=== PATIENT | female | born 1965 | race Caucasian/White ===

== ENCOUNTER 2016-09-02 09:50 | Emergency (ER) | payer MEDICAID ==
[~2016-09-02] VITALS: Ht 175.3 cm; Wt 77.1 kg
[2016-09-02 10:00] VITALS: BP_SYST 158
[2016-09-02] MEDS ORDERED: DIPHENHYDRAMINE INJ 50 MG/ML VIAL IM ONE (10:30)
[2016-09-02 12:10] VITALS: BP_SYST 129
== END 2016-09-02 12:10 | disposition home or self-care (01) ==
LOC: SED 09:50
DX: L53.9 Erythematous condition, unspecified (principal); T50.995A Adverse effect of other drugs, medicaments and biological substances, initial encounter; E78.00 Pure hypercholesterolemia, unspecified; Z88.6 Allergy status to analgesic agent; Y92.89 Other specified places as the place of occurrence of the external cause
CPT/HCPCS: 96372; 99283; J1200

== ENCOUNTER 2021-03-06 18:22 | Emergency (ER) | payer MEDICAID ==
[~2021-03-06] VITALS: Ht 165.1 cm; Wt 74.8 kg
[2021-03-06 18:23] VITALS: BP_SYST 153
--- NOTE | 2021-03-06 18:27 | NUR ---
AMBULATED TO BED 2
--- NOTE | 2021-03-06 18:38 | NUR ---
ER at bedside examining patient.
[2021-03-06] MEDS ORDERED: DIPHENHYDRAMINE HCL 25 MG CAPSULE PO ONE (18:45)
[2021-03-06] MEDS ORDERED: DEXAMETHASONE SOD PHOSPHATE 10 MG/ML VIAL IM ONE (18:45)
--- NOTE | 2021-03-06 18:47 | NUR ---
Pt. bib sister with concerns of allergic reaction, pt. has mild reddness to face but concerned symptoms will worsen, from past experience ussually starts with facial rash and can spread to welts over body, pt. does not know cause of allergy, denies pain
[2021-03-06 19:49] VITALS: BP_SYST 153
--- NOTE | 2021-03-06 19:50 | NUR ---
Patient given written and verbal discharge instructions and verbalizes understanding. ER MD discussed with patient the results and treatment provided. Patient in stable condition. ID arm band removed. Patient educated on pain management and to follow up with PMD. Pain Scale 0/10. Opportunity for questions provided and answered. Medication side effect fact sheet provided.
== END 2021-03-06 19:49 | disposition home or self-care (01) ==
LOC: SED 18:22
DX: T78.40XA Allergy, unspecified, initial encounter (principal); R22.0 Localized swelling, mass and lump, head; I10 Essential (primary) hypertension; E78.00 Pure hypercholesterolemia, unspecified; F32.9 Major depressive disorder, single episode, unspecified; Z88.8 Allergy status to other drugs, medicaments and biological substances; X58.XXXA Exposure to other specified factors, initial encounter
CPT/HCPCS: 96372; 99283; J1100; Q0163

== ENCOUNTER 2022-01-16 15:32 | Emergency (ER) | payer MEDICAID ==
[~2022-01-16] VITALS: Ht 170.2 cm; Wt 74.8 kg
[2022-01-16 16:03] VITALS: BP_SYST 123
[2022-01-16 17:19] LABS: BILIRUBIN,URINE 1+ (NEGATIVE); BLOOD, URINE 3+ (NEGATIVE); GLUCOSE,URINE NEGATIVE (NEGATIVE); KETONES,URINE TRACE (NEGATIVE); LEUKOCYTE ESTERASE ,URINE 3+ (NEGATIVE); NITRITE, URINE POSITIVE (NEGATIVE); PROTEIN URINE 3+ (NEGATIVE)
[2022-01-16 17:26] LABS: CLARITY/URINE SLIGHTLY CLOUDY (CLEAR); COLOR,URINE RED (YELLOW)
[2022-01-16 17:30] LABS: BACTERIA,URINE MODERATE /HPF (None Seen); RBC,URINE >100 /HPF (0-3); WBC,URINE 50-80 /HPF (0-3)
[2022-01-16 17:31] LABS: MUCUS,URINE None Seen /LPF (None Seen)
[2022-01-16 17:34] LABS: BASOPHILS # (AUTO) 0.1 K/uL (0.0-0.2); BASOPHILS % (AUTO) 0.5 % (0.0-2.0); EOSINOPHILS % (AUTO) 0.2 % (0.0-4.0); HEMATOCRIT 36.4 % (36-48); LYMPHOCYTES # (AUTO) 1.7 K/uL (1.0-5.5); LYMPHOCYTES % (AUTO) 14.2 % (20.5-51.5); MEAN CORPUSCULAR VOLUME 89 fL (79.0-98.0); MONOCYTES % (AUTO) 8.5 % (1.7-9.3); NEUTROPHILS % (AUTO) 76.6 % (40.0-70.0); PLATELET COUNT (AUTO) 268 K/uL (130-430); RED BLOOD CELL COUNT(AUTO) 4.11 MIL/uL (4.2-6.2); RED CELL DISTRIBUTION WIDTH 13.5 % (9.0-15.0); WHITE BLOOD COUNT (AUTO) 11.8 K/uL (4.8-10.8)
[2022-01-16 17:43] LABS: CALCIUM 9.2 mg/dL (8.4-11.0); CREATININE 0.99 mg/dL (0.55-1.30); POTASSIUM 3.9 mmol/L (3.5-5.1)
[2022-01-16 17:49] LABS: ALBUMIN 3.3 g/dL (3.4-4.8); TOTAL BILIRUBIN 0.5 mg/dL (0.0-1.0)
--- NOTE | 2022-01-16 18:09 | NUR ---
Patient to ER bed 6 to gown for evaluation. Side rails up. Report given to Mona BOLAÑOS.
--- NOTE | 2022-01-16 18:11 | NUR ---
PT CAME FROM HOME C/O FLANK PAIN RADIATING TO ABD X 2-3 DAYS WITH HEMATURIA. PT IS A&OX4, CALM AND COOPERATIVE. DENIES MEDICAL CONDITIONS BUT STATES HX OF KNEE SURGERY AND THYROID SX. WILL MONITOR AND PROVIDE CARE ORDERED.
--- NOTE | 2022-01-16 18:21 | NUR ---
RICARDO GUAMAN at bedside examining patient.
[2022-01-16] MEDS ORDERED: PIPERACILLIN/TAZO 3.375 GM in D5W 50 ML IV ONE (18:30)
[2022-01-16] MEDS ORDERED: ACETAMINOPHEN 325 MG TABLET PO ONE (18:30)
[2022-01-16] MEDS ORDERED: NS 1000 ML IV.SOLN IV ONE (18:30)
--- NOTE | 2022-01-16 18:30 | NUR ---
NS 1 L STARTED AND ENDED AT 1930 HRS
[2022-01-16 18:39] LABS: INR 0.9 (0.8-1.2); PROTHROMBIN TIME 9.6 SECS (9.5-12.5)
[2022-01-16] MEDS ORDERED: cefTRIAXone 1 GM VIAL ONE (19:44)
[2022-01-16] MEDS ORDERED: ONDANSETRON HCL 4 MG/2 ML VIAL IVP ONE (19:45)
[2022-01-16] MEDS ORDERED: MORPHINE 4 MG INJ. 4 MG/ML VIAL IVP ONE (19:45)
[2022-01-16] MEDS ORDERED: cefTRIAXone 1 GM in D5W 50 ML IV ONE (19:45)
[2022-01-16] MEDS ORDERED: HYDROcodone/ACETAMIN 7.5-325 MG TAB PO ONE (20:00)
[2022-01-16] MEDS ORDERED: cefTRIAXone 1 GM IVPB PREMIX 50 ML IV ONE (20:00)
--- NOTE | 2022-01-16 20:00 | NUR ---
pt c/o abdominal pains ,started a peripheral line G20 to left lower arm.started IVF bolus medicaed as ordered vitals done WNL
[2022-01-16 20:11] VITALS: BP_SYST 132
[2022-01-16] MEDS ORDERED: HYDR-3921 PO (20:24)
[2022-01-16] MEDS ORDERED: CEFI400C2 PO (20:24)
[2022-01-16] MEDS ORDERED: ONDA-8 TL (20:24)
--- NOTE | 2022-01-16 23:00 | NUR ---
PAIN RELIEVE AWAITS DC
--- NOTE | 2022-01-17 | NUR ---
VITALS WNL.PAIN RELIEVED .
--- NOTE | 2022-01-17 00:28 | NUR ---
Patient given written and verbal discharge instructions and verbalizes understanding. ER MD discussed with patient the results and treatment provided. Patient in stable condition. ID arm band removed. IV catheter removed intact and dressing applied, no active bleeding. Rx of given. Patient educated on pain management and to follow up with PMD. Pain Scale 0/10 Opportunity for questions provided and answered. Medication side effect fact sheet provided.
== END 2022-01-16 22:25 | disposition home or self-care (01) ==
LOC: SED 15:32
DX: N12 Tubulo-interstitial nephritis, not specified as acute or chronic (principal); A41.51 Sepsis due to Escherichia coli [E. coli]; R11.0 Nausea; R50.9 Fever, unspecified; I10 Essential (primary) hypertension; Z88.6 Allergy status to analgesic agent; Z79.899 Other long term (current) drug therapy
CPT/HCPCS: 99285; 74176; 96365; 96375; 80053; 81000; 85025; 85610; 87040; 87086; 84484; 36415; 93005; 76376; 83605; J0696 ×2; J2405; J2270